=== PATIENT | male | born 1990 | race African-American/Black ===

== ENCOUNTER 2020-06-05 | Emergency (ER) | payer OTHER ==
[2020-06-05] MEDS ORDERED: IBUPROFEN 800 MG TABLET PO ONE (00:48)
--- NOTE | 2020-06-05 00:49 | ER Document Report ---
ED Medical Screen (RME) - General Chief Complaint: Back Pain Stated Complaint: BACK SPASMS, LOW BACK PAIN Time Seen by Provider: 06/05/20 00:42 Information source: Patient Notes: Patient presents complaining of back pain for the past 2 days. Patient denies any injury. Patient denies any fever. Patient denies any urinary retention or incontinence. Patient denies any previous history of back problems. Patient did drive himself here tonight. I have greeted and performed a rapid initial assessment of this patient. A comprehensive ED assessment and evaluation of the patient, analysis of test results and completion of the medical decision making process will be conducted by additional ED providers. - Related Data Allergies/Adverse Reactions: No Known Allergies Allergy (Unverified 06/05/20 00:40) Home Medications: PYSCH MEDS Past Medical History - Social History Frequency of alcohol use: Social Drug Abuse: None Physical Exam - Vital signs Vitals: Temp Pulse Resp BP Pulse Ox 98.8 F 102 H 20 146/90 H 97 06/05/20 00:19 06/05/20 00:19 06/05/20 00:19 06/05/20 00:19 06/05/20 00:19 - General General appearance: Alert In distress: Mild Notes: Patient with thoracolumbar and lumbar midline tenderness, patient with lumbar paraspinal tenderness Course - Vital Signs Vital signs: Temp Pulse Resp BP Pulse Ox 98.8 F 102 H 20 146/90 H 97 06/05/20 00:41 06/05/20 00:19 06/05/20 00:19 06/05/20 00:19 06/05/20 00:19
--- NOTE | 2020-06-05 02:01 | RADIOLOGY REPORT (SQ) ---
EXAM DESCRIPTION: XR LUMBAR SPINE ANTEROPOSTERIOR, LATERAL, AND OBLIQUES, XR THORACIC SPINE 2 VIEWS COMPLETED DATE/TME: 06/05/2020 00:48 CLINICAL HISTORY: 30 years Male, back pain COMPARISON: None. Findings: Mild disc desiccation at the upper lumbar levels. Normal alignment and curvature. Vertebral heights are maintained. Extraspinal structures are grossly intact. IMPRESSION: No acute findings of XR LUMBAR SPINE ANTEROPOSTERIOR, LATERAL, AND OBLIQUES, XR THORACIC SPINE 2 VIEWS. .
[2020-06-05] MEDS ORDERED: HYDROCODONE/ACETAMINOPHEN 5-325 MG TABLET PO ONE (06:32)
[2020-06-05] MEDS ORDERED: DIAZEPAM 5 MG TABLET PO ONE (06:32)
[2020-06-05] MEDS ORDERED: KETOROLAC TROMETHAMINE 60 MG/2 ML SDV IM ONE (06:32)
[2020-06-05] MEDS ORDERED: LIDOCAINE 5% (700 MG) TRANSDERMAL ADH..PATCH TP ONE (06:33)
--- NOTE | 2020-06-05 07:09 | ER Document Report ---
HPI - HPI Time Seen by Provider: 06/05/20 00:42 Pain Level: 1 Notes: Patient presents complaining of back pain for the past 2 days. Patient denies any injury. Patient denies any fever. Patient denies any urinary retention or incontinence. Patient denies any previous history of back problems. Patient did drive himself here tonight. Past Medical History - General Information source: Patient - Social History Smoking Status: Current Every Day Smoker Frequency of alcohol use: Social Drug Abuse: None Family History: Reviewed & Not Pertinent Patient has homicidal ideation: No - Medical History Medical History: Negative Surgical Hx: Negative - Immunizations Immunizations up to date: Yes Vertical Provider Document - CONSTITUTIONAL Notes: PHYSICAL EXAMINATION: GENERAL: Well-appearing, well-nourished and in no acute distress. HEAD: Atraumatic, normocephalic. EYES: Pupils equal round and reactive to light, extraocular movements intact, sclera anicteric, conjunctiva are normal. ENT: Nares patent, oropharynx clear without exudates. Moist mucous membranes. NECK: Normal range of motion, supple without lymphadenopathy LUNGS: Breath sounds clear to auscultation bilaterally and equal. No wheezes rales or rhonchi. HEART: Regular rate and rhythm without murmurs ABDOMEN: Soft, nontender, nondistended abdomen. No guarding, no rebound. No masses appreciated. Musculoskeletal: Normal range of motion, no pitting or edema. No cyanosis. Tenderness in the lumbar paraspinous musculature bilaterally, no vertebral step- off or deformity. NEUROLOGICAL: Cranial nerves grossly intact. Normal speech, normal gait. Normal sensory, motor exams PSYCH: Normal mood, normal affect. SKIN: Warm, Dry, normal turgor, no rashes or lesions noted. Course - Re-evaluation Re-evalutation: Patient had x-rays obtained by triage provider. These are unremarkable. Patient was given Toradol, Valium, Taylor and a Lidoderm patch. Will reevaluate patient after medications have some time to work. Patient Based on history and physical, I have a very low suspicion of a concerning etiology of pain including epidural compression syndrome, spinal infection, transverse myelitis, malignancy, abdominal aortic aneurysm, renal colic, acute lower extremity claudication, neurogenic claudication, ankylosing spondylitis, or other intra-abdominal process. Due to absence of concerning risk factors in history and physical as well as absence of rapidly progressive, severe, or bilateral symptoms, will defer imaging at this point. 06/05/20 07:35 Patient resting with eyes closed. He reports significant relief of his pain after administration of medications here in the emergency department. 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 - Vital Signs Vital signs: Temp Pulse Resp BP Pulse Ox 98.2 F 107 H 16 141/62 H 100 06/05/20 04:00 06/05/20 04:00 06/05/20 04:00 06/05/20 04:00 06/05/20 04:00 Discharge - Discharge Clinical Impression: Low back pain Qualifiers: Chronicity: acute Back pain laterality: bilateral Sciatica presence: without sciatica Qualified Code(s): M54.5 - Low back pain Condition: Stable Disposition: HOME, SELF-CARE Additional Instructions: You have been seen in the Emergency Department (ED) today for back pain. Your workup and exam have not shown any acute abnormalities and you are likely suffering from muscle strain or possible problems with your discs, but there is no treatment that will fix your symptoms at this time. Please take the medication that has been prescribed as directed. You should also purchase a local lidocaine cream such as "aspercreme with lidocaine" and use per bottle instructions to the affected area. Apply heat to the area as often as you are able. Continue to keep active and avoid prolonged periods of bed rest. Please follow up with your doctor as soon as possible regarding today's ED visit and your back pain. Return to the ED for worsening back pain, fever, weakness or numbness of either leg, or if you develop either (1) an inability to urinate or have bowel movements, or (2) loss of your ability to control your bathroom functions (if you start having "accidents"), or if you develop other new symptoms that concern you.concern you. Prescriptions: Hydrocodone/Acetaminophen [Taylor 5-325 mg Tablet] 1 tab PO Q6H PRN #12 tablet PRN Reason: Methocarbamol [Robaxin 750 mg Tablet] 750 mg PO Q6H #20 tablet Forms: Return to Work
[2020-06-05 09:26] VITALS: BP 103/81
== END 2020-06-05 09:26 | disposition home or self-care (01) ==
LOC: ER
DX: M54.5 Low back pain (principal); F17.200 Nicotine dependence, unspecified, uncomplicated
CPT/HCPCS: 99283; 96372; 72110; 72070; J1885